=== PATIENT | male | born 1995 ===

== ENCOUNTER → 2023-10-31 | Outpatient (REF) ==
[2023-10-31 09:06] LABS: VENOUS FIO2 0; VENOUS O2 LITER FLOW 0; VENOUS PEEP 0; VENOUS PH 7.353 UNITS (7.330-7.430); VENOUS PULSE OX 0; VENOUS SITE NOT GIVEN; VENOUS TCPCO2 0; VENOUS TCPO2 0; VENOUS TIDAL VOLUME 0 cc
[2023-10-31 09:07] LABS: VENOUS BASE EXCESS -1.5 (-2.0-2.0); VENOUS HCO3 24.2 MMOL/L (23.0-27.0); VENOUS O2 SATURATION 82.8 % (60.0-80.0); VENOUS PARTIAL PRESSURE CO2 44.6 mmHg (38.0-50.0); VENOUS PARTIAL PRESSURE O2 51.2 mmHg (30.0-50.0); VENOUS STANDARD HCO3 22.9 MMOL/L; VENOUS TOTAL CO2 25.6 MMOL/L (24.0-28.0)
== END ==
LOC: M CAHLAB 07:53
PROVIDERS: ATTEND Emergency Medicine
DX: Z00.00 Encounter for general adult medical examination without abnormal findings (principal)

== ENCOUNTER → 2024-06-18 | Outpatient (REF) | LOC: M LAB 11:44 | PROVIDERS: ATTEND Pathology Forensic Pathology ==